=== PATIENT | female | born 1970 | race Caucasian/White ===

== ENCOUNTER 2017-09-23 16:59 | Emergency (ER) | payer BC ==
[~2017-09-23] VITALS: Ht 162.6 cm; Wt 78.5 kg
[~2017-09-23 16:59] MED LIST: CLEOCIN HCL150 M1 PO; CLEOCIN HCL300 MG PO; NAPROSYN500 MG PO; NORCO 5-325 TA1 EACH PO; PEPCID20 MG PO; PREDNISONE 20 M20 M1 PO; TRIAMCINOLONE A80 G2 TOP; ZPAK PO
[2017-09-23 17:54] LABS: INFLUENZA A ANTIGEN None Detected (None Detect); INFLUENZA B ANTIGEN None Detected (None Detect)
[2017-09-23] MEDS ORDERED: PROAIR HFA8.5 GM INH (17:57)
[2017-09-23] MEDS ORDERED: ZPAK PO (17:57)
[2017-09-23] MEDS ORDERED: PREDNISONE 20 M20 M1 PO (17:57)
[2017-09-23 18:06] VITALS: BP 158/108
== END 2017-09-23 18:16 | disposition home or self-care (01) ==
LOC: M.ERS 16:59
PROVIDERS: Nurse Practitioner Family
DX: J20.9 Acute bronchitis, unspecified (principal); F17.210 Nicotine dependence, cigarettes, uncomplicated; Z98.890 Other specified postprocedural states; Z90.49 Acquired absence of other specified parts of digestive tract; Z88.0 Allergy status to penicillin; Z91.040 Latex allergy status

== ENCOUNTER 2017-11-17 19:02 | Emergency (ER) | payer BC ==
[~2017-11-17] VITALS: Ht 162.6 cm; Wt 77.1 kg
[~2017-11-17 19:02] MED LIST changes: +PROAIR HFA8.5 GM INH
[2017-11-17] MEDS ORDERED: ROBAXIN500 MG PO (20:42)
[2017-11-17 21:00] VITALS: BP 151/88
--- NOTE | 2017-11-18 10:51 | EKG ---
[place] [address] ELECTROCARDIOGRAM REPORT Name: ROBERTO TIAN Room: [facility]#: [id number] Admission: 11/17/17 Attend Phys: Discharge: 11/17/17 Date of : 74 Report #: [id number] THIS REPORT FOR: //name// [facility] ED Test Date: 2017-11-17 Test Time: 19:31:57 Pat Name: ROBERTO TIAN Department: Room: Gender: F Procurement Consultant: JOSE Moreno : 1970 Requested By: Dwight Le Order Number: [id number] MD: Wes Iqbal Measurements Intervals [place] Rate: 85 P: 32 TN: 175 QRS: -28 QRSD: 89 T: 50 QT: 364 QTc: 433 Interpretive Statements Sinus rhythm Borderline left axis deviation Compared to ECG 05/07/2017 14:13:28 No significant changes Electronically Signed On 11-18-2017 10:51:10 CDT by Wes Iqbal [email or web address] <ELECTRONICALLY SIGNED> By: Wes Iqbal MD, [facility] 11/18/17 1051 30 30 Wes Iqbal MD, FACC /EPI
== END 2017-11-17 21:00 | disposition home or self-care (01) ==
LOC: M.ERS 19:02
DX: S46.812A Strain of other muscles, fascia and tendons at shoulder and upper arm level, left arm, initial encounter (principal); F17.210 Nicotine dependence, cigarettes, uncomplicated; Z91.040 Latex allergy status; Z88.0 Allergy status to penicillin; X50.0XXA Overexertion from strenuous movement or load, initial encounter; Y93.89 Activity, other specified; Y92.89 Other specified places as the place of occurrence of the external cause; Y99.8 Other external cause status

== ENCOUNTER 2017-11-20 19:47 | Emergency (ER) | payer BC ==
[~2017-11-20] VITALS: Ht 162.6 cm; Wt 77.1 kg
[~2017-11-20 19:47] MED LIST changes: +ROBAXIN500 MG PO
[2017-11-20] MEDS ORDERED: NORCO 5-325 TA1 EAC1 PO (20:11)
[2017-11-20] MEDS ORDERED: CLEOCIN HCL150 M1 PO (20:11)
[2017-11-20 20:46] VITALS: BP 112/78
== END 2017-11-20 20:48 | disposition home or self-care (01) ==
LOC: M.ERS 19:47
DX: M27.63 Post-osseointegration mechanical failure of dental implant (principal); F17.210 Nicotine dependence, cigarettes, uncomplicated; Z90.49 Acquired absence of other specified parts of digestive tract; Z98.890 Other specified postprocedural states; Z91.040 Latex allergy status; Z88.0 Allergy status to penicillin

== ENCOUNTER 2017-12-24 10:01 | Emergency (ER) | payer BC ==
[~2017-12-24] VITALS: Ht 162.6 cm; Wt 77.1 kg
[~2017-12-24 10:01] MED LIST changes: +NORCO 5-325 TA1 EAC1 PO
[2017-12-24 10:05] VITALS: BP 154/103
[2017-12-24] MEDS ORDERED: TRIAMCINOLONE A80 G2 TOP (10:19)
[2017-12-24] MEDS ORDERED: PEPCID20 MG PO (10:19)
== END 2017-12-24 10:27 | disposition home or self-care (01) ==
LOC: M.ERS 10:01
DX: L25.9 Unspecified contact dermatitis, unspecified cause (principal); F17.210 Nicotine dependence, cigarettes, uncomplicated; Z91.040 Latex allergy status; Z88.0 Allergy status to penicillin; Z90.49 Acquired absence of other specified parts of digestive tract

== ENCOUNTER 2018-01-27 16:58 | Emergency (ER) | payer BC ==
[~2018-01-27] VITALS: Ht 162.6 cm; Wt 79.4 kg
[2018-01-27] MEDS ORDERED: NASONEX17 GM NASAL (18:15)
[2018-01-27] MEDS ORDERED: MEDROLDOSEPACK PO (18:15)
[2018-01-27] MEDS ORDERED: KEFLEX500 M1 PO (18:15)
[2018-01-27 18:24] VITALS: BP 170/105
== END 2018-01-27 18:25 | disposition home or self-care (01) ==
LOC: M.ERS 16:58
DX: J30.9 Allergic rhinitis, unspecified (principal); K08.89 Other specified disorders of teeth and supporting structures; F17.210 Nicotine dependence, cigarettes, uncomplicated; Z90.49 Acquired absence of other specified parts of digestive tract; Z98.890 Other specified postprocedural states; Z91.040 Latex allergy status; Z88.0 Allergy status to penicillin

== ENCOUNTER 2018-07-06 15:57 | Emergency (ER) | payer BC ==
[~2018-07-06] VITALS: Ht 162.6 cm; Wt 79.4 kg
[~2018-07-06 15:57] MED LIST changes: +KEFLEX500 M1 PO; +MEDROLDOSEPACK PO; +NASONEX17 GM NASAL
[2018-07-06] MEDS ORDERED: KEFLEX500 M1 PO (17:16)
[2018-07-06] MEDS ORDERED: ACETAMINOPHEN-1 EAC1 PO (17:16)
[2018-07-06 17:35] VITALS: BP 131/88
== END 2018-07-06 17:35 | disposition home or self-care (01) ==
LOC: M.ERS 15:57
DX: K08.89 Other specified disorders of teeth and supporting structures (principal); F17.210 Nicotine dependence, cigarettes, uncomplicated; Z90.49 Acquired absence of other specified parts of digestive tract; Z88.0 Allergy status to penicillin; Z91.040 Latex allergy status; Z98.890 Other specified postprocedural states

== ENCOUNTER 2018-12-14 13:14 | Emergency (ER) | payer BC ==
[~2018-12-14] VITALS: Ht 162.6 cm; Wt 77.1 kg
[~2018-12-14 13:14] MED LIST changes: +ACETAMINOPHEN-1 EAC1 PO
[2018-12-14] MEDS ORDERED: NOHOMEMEDICATIONS (13:24)
[2018-12-14 14:33] VITALS: BP 169/100
== END 2018-12-14 14:33 | disposition home or self-care (01) ==
LOC: M.ERS 13:14
DX: M79.671 Pain in right foot (principal); F17.210 Nicotine dependence, cigarettes, uncomplicated; Z91.040 Latex allergy status; Z88.0 Allergy status to penicillin; Z90.49 Acquired absence of other specified parts of digestive tract; Z98.890 Other specified postprocedural states

== ENCOUNTER 2019-08-05 17:17 | Emergency (ER) | payer BC ==
[~2019-08-05] VITALS: Ht 162.6 cm; Wt 78.5 kg
[~2019-08-05 17:17] MED LIST changes: +NOHOMEMEDICATIONS
[2019-08-05 17:26] VITALS: BP 162/86
[2019-08-05 18:01] LABS: INFLUENZA A ANTIGEN Negative (Negative); INFLUENZA B ANTIGEN Negative (Negative)
[2019-08-05] MEDS ORDERED: MEDROLDOSEPACK PO (18:03)
== END 2019-08-05 18:16 | disposition home or self-care (01) ==
LOC: M.ERS 17:17
PROVIDERS: Nurse Practitioner Family
DX: J06.9 Acute upper respiratory infection, unspecified (principal); F17.210 Nicotine dependence, cigarettes, uncomplicated; Z90.49 Acquired absence of other specified parts of digestive tract; Z98.890 Other specified postprocedural states; Z91.040 Latex allergy status; Z88.0 Allergy status to penicillin

== ENCOUNTER 2019-09-08 04:57 | Emergency (ER) | payer BC ==
[~2019-09-08] VITALS: Ht 162.6 cm; Wt 78.5 kg
[2019-09-08 05:18] LABS: INFLUENZA A ANTIGEN Positive (Negative); INFLUENZA B ANTIGEN Negative (Negative)
[2019-09-08 05:25] LABS: ABSOLUTE BASOPHILS 0.1 thou/uL (0.0-0.2); ABSOLUTE MONOCYTES 0.6 thou/uL (0.0-1.2); ABSOLUTE NEUTROPHILS 4.2 thou/uL (1.6-8.1); EOSINOPHILS 0.4 %; HEMATOCRIT 40.9 % (37.0-47.0); HEMOGLOBIN 14.3 gm/dL (12.0-15.0); LYMPHOCYTES 16.9 %; MCH 31.7 pg (26.0-34.0); MCHC 34.9 g/dL (28.0-37.0); MCV 90.8 fL (80.0-100.0); MONOCYTES 10.7 %; MPV 7.6 fl. (7.2-11.1); NUCLEATED RBCS 0 /100WBC; PLATELET COUNT* 344 thou/uL (150-400); RBC 4.51 mil/uL (4.20-5.00); RDW-CV 12.2 % (10.5-14.5); WBC 5.9 thou/uL (4.0-11.0)
[2019-09-08] MEDS ORDERED: PROAIR HFA8.5 GM INH (05:38)
[2019-09-08] MEDS ORDERED: TAMIFLU75 MG PO (05:38)
[2019-09-08] MEDS ORDERED: ZOFRAN ODT4 MG PO (05:38)
[2019-09-08] MEDS ORDERED: HYDROCODON-ACE1 EAC8 PO (05:38)
[2019-09-08 05:41] LABS: CALCIUM 8.8 mg/dL (8.5-10.1); CREATININE 0.9 mg/dL (0.6-1.3); POTASSIUM 3.7 mmol/L (3.5-5.1)
[2019-09-08 05:45] LABS: ALBUMIN 3.8 g/dL (3.4-5.0); TOTAL BILIRUBIN 0.4 mg/dL (<0.1-1.0); TOTAL PROTEIN 7.5 g/dL (6.4-8.2)
[2019-09-08 06:17] VITALS: BP 160/92
== END 2019-09-08 06:21 | disposition home or self-care (01) ==
LOC: M.ERS 04:57
PROVIDERS: Emergency Medicine
DX: J10.1 Influenza due to other identified influenza virus with other respiratory manifestations (principal); R19.7 Diarrhea, unspecified; R11.2 Nausea with vomiting, unspecified; Z88.0 Allergy status to penicillin; Z90.49 Acquired absence of other specified parts of digestive tract; Z98.890 Other specified postprocedural states; Z98.51 Tubal ligation status; Z91.040 Latex allergy status

== ENCOUNTER 2019-09-12 15:42 | Emergency (ER) | payer BC ==
[~2019-09-12] VITALS: Ht 162.6 cm; Wt 76.7 kg
[~2019-09-12 15:42] MED LIST changes: +HYDROCODON-ACE1 EAC8 PO; +TAMIFLU75 MG PO; +ZOFRAN ODT4 MG PO
[2019-09-12 16:42] LABS: INFLUENZA A ANTIGEN Negative (Negative); INFLUENZA B ANTIGEN Negative (Negative)
[2019-09-12] MEDS ORDERED: ZPAK PO (16:58)
[2019-09-12 17:05] VITALS: BP 124/87
--- NOTE | 2019-09-14 10:05 | EKG ---
[place] [address] ELECTROCARDIOGRAM REPORT Name: ROBERTO TIAN Room: [facility]#: [id number] Admission: 09/12/19 Attend Phys: Discharge: 09/12/19 Date of : 74 Report #: [id number] THIS REPORT FOR: //name// [facility] ED Test Date: 2019-09-12 Test Time: 16:55:32 Pat Name: ROBERTO TIAN Department: Room: Gender: F Associate Program Manager: DENIZ : 1970 Requested By: Jaelyn Grant Order Number: [id number] MD: Wes Iqbal Measurements Intervals [place] Rate: 77 P: 53 AR: 204 QRS: -25 QRSD: 91 T: 60 QT: 372 QTc: 421 Interpretive Statements Sinus rhythm Borderline prolonged AR interval Probable left atrial enlargement Borderline left axis deviation Abnormal R-wave progression, early transition Compared to ECG 11/17/2017 19:31:57 No significant changes Electronically Signed On 09-14-2019 10:04:27 REDUCING SALON ATTENDANT by Wes Iqbal [email or web address] <ELECTRONICALLY SIGNED> By: Wes Iqbal MD, [facility] 09/14/19 1004 1655 1655 Wes Iqbal MD, [facility] /EPI
== END 2019-09-12 21:50 | disposition home or self-care (01) ==
LOC: M.ERS 15:42
PROVIDERS: Family Medicine
DX: J18.9 Pneumonia, unspecified organism (principal); F17.210 Nicotine dependence, cigarettes, uncomplicated; Z88.1 Allergy status to other antibiotic agents; Z91.040 Latex allergy status; Z98.51 Tubal ligation status; Z90.49 Acquired absence of other specified parts of digestive tract; Z98.890 Other specified postprocedural states

== ENCOUNTER 2020-03-26 16:45 | Emergency (ER) | payer BC ==
[~2020-03-26] VITALS: Ht 162.6 cm; Wt 78.5 kg
[2020-03-26 17:49] LABS: URINE BLOOD NEGATIVE (Negative); URINE CLARITY CLEAR; URINE COLOR YELLOW; URINE GLUCOSE-RANDOM NEGATIVE (Negative); URINE KETONES TRACE (Negative); URINE LEUKOCYTES-REFLEX NEGATIVE (Negative); URINE NITRITE-REFLEX NEGATIVE (Negative); URINE PROTEIN NEGATIVE (Negative); URINE SPECIFIC GRAVITY >= 1.030 (1.005-1.030); URINE UROBILINOGEN 0.2 E.U./dl (0.2-1.0)
[2020-03-26 17:50] LABS: URINE BILIRUBIN 1+ (Negative)
[2020-03-26 17:51] LABS: ICTOTEST (BILI CONFIRMATORY) Positive (Negative)
[2020-03-26 18:17] LABS: ABSOLUTE BASOPHILS 0.1 thou/uL (0.0-0.2); ABSOLUTE EOSINOPHILS 0.3 thou/uL (0.0-0.7); ABSOLUTE LYMPHOCYTES 3.4 thou/uL (0.8-5.3); ABSOLUTE MONOCYTES 0.7 thou/uL (0.0-1.2); ABSOLUTE NEUTROPHILS 4.4 thou/uL (1.6-8.1); BASOPHILS 1.1 %; EOSINOPHILS 2.8 %; HEMOGLOBIN 13.7 gm/dL (12.0-15.0); LYMPHOCYTES 38.1 %; MCH 31.4 pg (26.0-34.0); MCHC 34.4 g/dL (28.0-37.0); MCV 91.3 fL (80.0-100.0); MONOCYTES 7.8 %; MPV 7.8 fl. (7.2-11.1); NUCLEATED RBCS 0 /100WBC; PLATELET COUNT* 424 thou/uL (150-400); POLYS 50.2 %; RBC 4.38 mil/uL (4.20-5.00); RDW-CV 12.7 % (10.5-14.5); WBC 8.8 thou/uL (4.0-11.0)
[2020-03-26 18:29] LABS: CREATININE 0.8 mg/dL (0.6-1.3); POTASSIUM 3.2 mmol/L (3.5-5.1)
[2020-03-26 18:33] LABS: ALBUMIN 3.6 g/dL (3.4-5.0); TOTAL BILIRUBIN 0.5 mg/dL (<0.1-1.0)
[2020-03-26] MEDS ORDERED: NORCO 5-325 TA1 EAC2 PO ×2 (20:09→20:15)
[2020-03-26] MEDS ORDERED: ONDANSETRON ODT4 MG PO ×2 (20:09→20:15)
[2020-03-26 20:30] VITALS: BP 150/92
== END 2020-03-26 20:30 | disposition home or self-care (01) ==
LOC: M.ERS 16:45
PROVIDERS: Emergency Medicine Emergency Medical Services; Physician Assistant
DX: R10.31 Right lower quadrant pain (principal); R10.32 Left lower quadrant pain; R11.2 Nausea with vomiting, unspecified; R35.0 Frequency of micturition; R30.0 Dysuria; Z91.040 Latex allergy status; Z88.0 Allergy status to penicillin; Z98.51 Tubal ligation status; Z98.890 Other specified postprocedural states; Z90.49 Acquired absence of other specified parts of digestive tract

== ENCOUNTER 2020-05-29 10:29 | Emergency (ER) | payer BC ==
[~2020-05-29] VITALS: Ht 162.6 cm; Wt 77.1 kg
[~2020-05-29 10:29] MED LIST changes: +NORCO 5-325 TA1 EAC2 PO; +ONDANSETRON ODT4 MG PO
[2020-05-29] MEDS ORDERED: TORADOL 10 MG T10 MG PO (11:46)
[2020-05-29] MEDS ORDERED: MEDROLDOSEPACK PO (11:46)
[2020-05-29 12:03] VITALS: BP 122/77
== END 2020-05-29 12:04 | disposition home or self-care (01) ==
LOC: M.ERS 10:29
DX: S83.8X2A Sprain of other specified parts of left knee, initial encounter (principal); F17.210 Nicotine dependence, cigarettes, uncomplicated; Z98.51 Tubal ligation status; Z90.49 Acquired absence of other specified parts of digestive tract; Z98.890 Other specified postprocedural states; Z88.0 Allergy status to penicillin; Z91.040 Latex allergy status; X50.9XXA Other and unspecified overexertion or strenuous movements or postures, initial encounter; Y93.89 Activity, other specified; Y92.89 Other specified places as the place of occurrence of the external cause; Y99.0 Civilian activity done for income or pay

== ENCOUNTER 2020-06-23 21:42 | Emergency (ER) | payer BC ==
[~2020-06-23] VITALS: Ht 162.6 cm; Wt 77.1 kg
[~2020-06-23 21:42] MED LIST changes: +TORADOL 10 MG T10 MG PO
[2020-06-23] MEDS ORDERED: DOXYCYCLINE 10100 M2 PO (23:12)
[2020-06-23] MEDS ORDERED: NORCO 5-325 TA1 EAC2 PO (23:12)
[2020-06-23 23:31] VITALS: BP 144/72
== END 2020-06-23 23:31 | disposition home or self-care (01) ==
LOC: M.ERS 21:42
DX: S61.012A Laceration without foreign body of left thumb without damage to nail, initial encounter (principal); F17.210 Nicotine dependence, cigarettes, uncomplicated; Z98.51 Tubal ligation status; Z90.49 Acquired absence of other specified parts of digestive tract; Z98.890 Other specified postprocedural states; Z91.040 Latex allergy status; Z88.0 Allergy status to penicillin; W26.0XXA Contact with knife, initial encounter; Y93.89 Activity, other specified; Y92.89 Other specified places as the place of occurrence of the external cause; Y99.8 Other external cause status

== ENCOUNTER 2020-08-15 05:54 | Emergency (ER) | payer BC ==
[~2020-08-15] VITALS: Ht 162.6 cm; Wt 78.5 kg
[~2020-08-15 05:54] MED LIST changes: +DOXYCYCLINE 10100 M2 PO
[2020-08-15 06:16] LABS: URINE BILIRUBIN NEGATIVE (Negative); URINE BLOOD TRACE (Negative); URINE CLARITY CLEAR; URINE COLOR YELLOW; URINE GLUCOSE-RANDOM NEGATIVE (Negative); URINE KETONES NEGATIVE (Negative); URINE LEUKOCYTES-REFLEX NEGATIVE (Negative); URINE NITRITE-REFLEX NEGATIVE (Negative); URINE PROTEIN NEGATIVE (Negative); URINE SPECIFIC GRAVITY >= 1.030 (1.005-1.030); URINE UROBILINOGEN 0.2 E.U./dl (0.2-1.0)
[2020-08-15 06:17] LABS: ABSOLUTE BASOPHILS 0.1 thou/uL (0.0-0.2); ABSOLUTE EOSINOPHILS 0.3 thou/uL (0.0-0.7); ABSOLUTE LYMPHOCYTES 3.1 thou/uL (0.8-5.3); ABSOLUTE MONOCYTES 0.4 thou/uL (0.0-1.2); ABSOLUTE NEUTROPHILS 4.5 thou/uL (1.6-8.1); EOSINOPHILS 3.4 %; HEMATOCRIT 41.7 % (37.0-47.0); HEMOGLOBIN 14.1 gm/dL (12.0-15.0); LYMPHOCYTES 36.8 %; MCH 31.1 pg (26.0-34.0); MCHC 33.9 g/dL (28.0-37.0); MCV 91.7 fL (80.0-100.0); MONOCYTES 4.8 %; MPV 7.5 fl. (7.2-11.1); NUCLEATED RBCS 0 /100WBC; PLATELET COUNT* 379 thou/uL (150-400); RBC 4.55 mil/uL (4.20-5.00); RDW-CV 13.1 % (10.5-14.5); WBC 8.3 thou/uL (4.0-11.0)
[2020-08-15 06:24] LABS: CALCIUM 8.8 mg/dL (8.5-10.1); CREATININE 0.7 mg/dL (0.6-1.3); POTASSIUM 3.9 mmol/L (3.5-5.1)
[2020-08-15 06:28] LABS: ALBUMIN 3.6 g/dL (3.4-5.0); TOTAL BILIRUBIN 0.6 mg/dL (<0.1-1.0); TOTAL PROTEIN 7.2 g/dL (6.4-8.2)
[2020-08-15] MEDS ORDERED: NORCO 5-325 TA1 EAC2 PO (08:00)
[2020-08-15] MEDS ORDERED: FLEXERIL PO (08:00)
[2020-08-15 08:08] VITALS: BP 159/97
--- NOTE | 2020-08-15 15:13 | EKG ---
[place] [address] ELECTROCARDIOGRAM REPORT Name: ROBERTO TIAN Room: [facility]#: [id number] Admission: 08/15/20 Attend Phys: Discharge: 08/15/20 Date of : 74 Date of Service: 08/15/20 0616 Report #: [id number] THIS REPORT FOR: //name// [facility] ED Test Date: 2020-08-15 Test Time: 06:16:46 Pat Name: ROBERTO TIAN Department: Room: Gender: Auto Damage Estimator: [place] : 1970 Requested By: Jose An Order Number: [id number] MD: Wilmer Jackson Measurements Intervals [place] Rate: 98 P: 52 FL: 198 QRS: -25 QRSD: 88 T: 48 QT: 350 QTc: 447 Interpretive Statements Sinus rhythm Borderline prolonged FL interval Borderline left axis deviation Baseline wander in lead(s) V5,V6 Compared to ECG 09/12/2019 16:55:32 No significant changes Electronically Signed On 08-15-2020 15:13:00 SCOUT SNIPER by Wilmer Jackson [email or web address] <ELECTRONICALLY SIGNED> By: Wilmer Jackson MD, [facility] 08/15/20 1513 Wilmer Jackson MD, [facility] /EPI
--- NOTE | 2020-08-15 15:13 | EKG ---
[place] [address] ELECTROCARDIOGRAM REPORT Name: ROBERTO TIAN Room: [facility]#: [id number] Admission: 08/15/20 Attend Phys: Discharge: 08/15/20 Date of : 74 Date of Service: 08/15/20619 Report #: [id number] THIS REPORT FOR: //name// [facility] ED Test Date: 2020-08-15 Test Time: 06:20:55 Pat Name: ROBERTO TIAN Department: Room: Gender: F Humanities Instructor: [place] : 1970 Requested By: Jose An Order Number: [id number] MD: Wilmer Jackson Measurements Intervals [place] Rate: 89 P: 39 DC: 176 QRS: -29 QRSD: 90 T: 48 QT: 363 QTc: 442 Interpretive Statements Sinus rhythm Borderline left axis deviation Compared to ECG 08/15/2020 06:16:46 No significant changes Electronically Signed On 08-15-2020 15:13:04 CODING AUDITOR by Wilmer Jackson [email or web address] <ELECTRONICALLY SIGNED> By: Wilmer Jackson MD, [facility] 08/15/20 1513 9 9 Wilmer Jackson MD, [facility] /EPI
== END 2020-08-15 08:08 | disposition home or self-care (01) ==
LOC: M.ERS 05:54
PROVIDERS: Emergency Medicine Emergency Medical Services
DX: H33.11 Cyst of ora serrata (principal); F17.210 Nicotine dependence, cigarettes, uncomplicated; Z98.51 Tubal ligation status; Z98.890 Other specified postprocedural states; Z91.040 Latex allergy status; Z88.0 Allergy status to penicillin

== ENCOUNTER 2020-10-11 08:29 | Emergency (ER) | payer BC ==
[~2020-10-11] VITALS: Ht 162.6 cm; Wt 76.7 kg
[~2020-10-11 08:29] MED LIST changes: +FLEXERIL PO
[2020-10-11 08:37] VITALS: BP 157/95
[2020-10-11] MEDS ORDERED: NAPROSYN500 MG PO (08:49)
[2020-10-11] MEDS ORDERED: CLEOCIN HCL300 MG PO (08:49)
[2020-10-11] MEDS ORDERED: TYLENOL325 M1 PO (08:49)
== END 2020-10-11 08:58 | disposition home or self-care (01) ==
LOC: M.ERS 08:29
DX: H66.91 Otitis media, unspecified, right ear (principal); F17.210 Nicotine dependence, cigarettes, uncomplicated; Z98.51 Tubal ligation status; Z98.890 Other specified postprocedural states; Z90.49 Acquired absence of other specified parts of digestive tract; Z91.040 Latex allergy status; Z88.0 Allergy status to penicillin

== ENCOUNTER 2020-11-02 12:03 | Emergency (ER) | payer BC ==
[~2020-11-02] VITALS: Ht 162.6 cm; Wt 77.1 kg
[~2020-11-02 12:03] MED LIST changes: +TYLENOL325 M1 PO
[2020-11-02 12:05] VITALS: BP 161/95
[2020-11-02] MEDS ORDERED: IBUPROFEN 800800 M1 PO (13:18)
== END 2020-11-02 13:28 | disposition home or self-care (01) ==
LOC: M.ERS 12:03
DX: J06.9 Acute upper respiratory infection, unspecified (principal); H92.02 Otalgia, left ear; F17.210 Nicotine dependence, cigarettes, uncomplicated; Z98.51 Tubal ligation status; Z90.49 Acquired absence of other specified parts of digestive tract; Z98.890 Other specified postprocedural states; Z88.0 Allergy status to penicillin; Z91.040 Latex allergy status

== ENCOUNTER 2020-11-24 14:47 | Emergency (ER) | payer BC ==
[~2020-11-24] VITALS: Ht 162.6 cm; Wt 75.8 kg
[~2020-11-24 14:47] MED LIST changes: +IBUPROFEN 800800 M1 PO
[2020-11-24] MEDS ORDERED: DOXYCYCLINE 10100 M2 PO (15:15)
[2020-11-24 15:34] VITALS: BP 148/96
== END 2020-11-24 15:35 | disposition home or self-care (01) ==
LOC: M.ERS 14:47
DX: J18.9 Pneumonia, unspecified organism (principal); H92.03 Otalgia, bilateral; F17.210 Nicotine dependence, cigarettes, uncomplicated; Z98.51 Tubal ligation status; Z90.49 Acquired absence of other specified parts of digestive tract; Z98.890 Other specified postprocedural states; Z79.899 Other long term (current) drug therapy; Z91.040 Latex allergy status; Z88.0 Allergy status to penicillin

== ENCOUNTER 2021-01-02 18:04 | Emergency (ER) | payer OTHER, BC ==
[~2021-01-02] VITALS: Ht 162.6 cm; Wt 73.5 kg
[2021-01-02] MEDS ORDERED: IBUPROFEN 800800 M1 PO (20:13)
[2021-01-02] MEDS ORDERED: ZANAFLEX4 MG PO (20:13)
[2021-01-02 20:18] VITALS: BP 146/94
== END 2021-01-02 20:20 | disposition home or self-care (01) ==
LOC: M.ERS 18:04
DX: M25.511 Pain in right shoulder (principal); F17.210 Nicotine dependence, cigarettes, uncomplicated; Z88.0 Allergy status to penicillin; Z91.040 Latex allergy status; Z90.49 Acquired absence of other specified parts of digestive tract; Z98.890 Other specified postprocedural states; Z98.51 Tubal ligation status; M79.601 Pain in right arm

== ENCOUNTER 2021-04-16 21:04 | Emergency (ER) | payer OTHER ==
[~2021-04-16] VITALS: Ht 162.6 cm; Wt 75.8 kg
[~2021-04-16 21:04] MED LIST changes: +ZANAFLEX4 MG PO
[2021-04-16] MEDS ORDERED: FLEXERIL PO (23:40)
[2021-04-16] MEDS ORDERED: ULTRAM 50MG TAB50 MG PO (23:40)
[2021-04-16 23:59] VITALS: BP 152/64
== END 2021-04-16 23:59 | disposition home or self-care (01) ==
LOC: M.ERS 21:04
DX: R10.31 Right lower quadrant pain (principal); F17.210 Nicotine dependence, cigarettes, uncomplicated; Z98.890 Other specified postprocedural states; Z91.040 Latex allergy status; Z88.0 Allergy status to penicillin

== ENCOUNTER 2021-10-12 16:32 | Emergency (ER) | payer OTHER ==
[~2021-10-12] VITALS: Ht 162.6 cm; Wt 81.7 kg
[~2021-10-12 16:32] MED LIST changes: +ULTRAM 50MG TAB50 MG PO
[2021-10-12] MEDS ORDERED: CLEOCIN HCL150 MG PO (17:14)
[2021-10-12 17:20] VITALS: BP 174/104
== END 2021-10-12 17:21 | disposition home or self-care (01) ==
LOC: M.ERS 16:32
DX: K02.9 Dental caries, unspecified (principal); Z98.51 Tubal ligation status; Z90.49 Acquired absence of other specified parts of digestive tract; Z98.890 Other specified postprocedural states; Z91.040 Latex allergy status; Z88.0 Allergy status to penicillin; Z87.891 Personal history of nicotine dependence